=== PATIENT | female | born 1950 | race African-American/Black ===

== ENCOUNTER 2024-07-26 11:34 | Emergency (ER) | payer OTHER ==
[~2024-07-26] VITALS: Ht 170.2 cm; Wt 70.0 kg
[2024-07-26 11:37] VITALS: O2SAT 99
[2024-07-26] MEDS: SODIUM CHLORIDE 0.9% 1,000 ML IV ONE (12:29)
[2024-07-26] MEDS: ACETAMINOPHEN 325MG TABLET PO ONE (12:29)
[2024-07-26 13:05] LABS: CHLORIDE 106 mEq/L (98-107)
[2024-07-26 13:06] LABS: CARBON DIOXIDE 25 mEq/L (21-32); POTASSIUM 3.9 mEq/L (3.5-5.1); SODIUM 141 mEq/L (136-145)
[2024-07-26 13:07] LABS: CALCIUM 9.3 mg/dL (8.7-10.4)
[2024-07-26 13:08] LABS: BASOPHILS % 0.4 % (0.0-2.0); DIFFERENTIAL COMMENT 0; EOSINOPHILS % 0.9 % (0.0-5.0); HEMOGLOBIN. 12.5 g/dL (12.0-16.0); LYMPHOCYTES % 27.1 % (20.0-50.0); MEAN CORPUSCULAR HEMOGLOBIN 33.6 pg (28.0-32.0); MEAN CORPUSCULAR VOLUME 101.8 fL (81.0-99.0); MEAN PLATELET VOLUME 9.9 fl (7.4-10.4); MONOCYTES % 9.9 % (2.0-8.0); NEUTROPHILS % 61.7 % (40.0-76.0); PLATELET 158 x1000/uL (130-400); RED BLOOD CELL COUNT 3.73 mill/uL (4.2-5.4); RED CELL DISTRIBUTION WIDTH 12.5 % (11.6-14.6); WHITE BLOOD COUNT 4.8 x1000/uL (4.5-11.0)
[2024-07-26 13:11] LABS: CREATININE 0.9 mg/dL (0.6-1.0); GLUCOSE 112 mg/dL (70-105)
[2024-07-26 13:12] LABS: UREA NITROGEN BLOOD 13 mg/dL (9-23)
[2024-07-26 13:13] LABS: TROPONIN I HIGH SENSITIVITY 9 ng/L (3.0-34)
[2024-07-26 13:56] LABS: INR 0.9; PARTIAL THROMBOPLASTIN TIME 25.6 sec (23.4-31.0); PROTHROMBIN TIME 9.8 sec (9.6-11.0)
[2024-07-26 15:47] VITALS: BP 146/68; PULSE 66; RESP 18; TEMP 36.9; O2SAT 99
== END 2024-07-26 15:53 | disposition home or self-care (01) ==
LOC: ER 11:34
DX: S00.83XA Contusion of other part of head, initial encounter (principal); S50.311A Abrasion of right elbow, initial encounter; M25.511 Pain in right shoulder; M25.552 Pain in left hip; I10 Essential (primary) hypertension; E78.00 Pure hypercholesterolemia, unspecified; W10.9XXA Fall (on) (from) unspecified stairs and steps, initial encounter
CPT/HCPCS: 99285; 70450; 71045; 80048; 85025; 85610; 85730; 84484; 36415; 73552; 73030; 73080; 70486; 72192; 93005; J7030